=== PATIENT | female | born 1940 | race African-American/Black ===

== ENCOUNTER 2016-09-15 17:39 | Observation (INO) | payer OTHER ==
--- NOTE | ~2016-09-15 | EKG ---
PATIENT: KAYCEE TENA UNIT #: [id number] Ventricular Rate: 79 BPM Atrial Rate: 79 BPM P-R Interval: 144 ms QRS Duration: 80 ms Q-T Interval: 398 ms QTC Calculation(Bezet): 456 ms P Camak: 26 degrees Calculated R Camak: -24 degrees Calculated T Camak: 22 degrees Diagnosis Line: Normal sinus rhythm Diagnosis Line: Possible Left atrial enlargement Diagnosis Line: Left ventricular hypertrophy Diagnosis Line: RSR' or QR pattern in V1 suggests right Diagnosis Line: ventricular conduction delay Diagnosis Line: Abnormal ECG Diagnosis Line: When compared with ECG of 12-MAY-2014 22:19, Diagnosis Line: No significant change was found Diagnosis Line: Confirmed by MALOLRY BAPTISTE MD ([id number]) on 09/18/2016 Diagnosis Line: 4:09:15 PM INTERPRETING MD: EMILE RECINOS
--- NOTE | ~2016-09-15 | US128 ---
[id number] [facility] [address] [place], [place] [address] [id number] I MR#: [id number] Acc #: [id number] NAME: KAYCEE TENA : 1940 SEX: F STUDY DATE/TIME: 09/17/2016 10:36 UNIT: C3A PCU ROOM: 306 STUDY DESCRIPTION: US Thyroid Attending Physician: Lois Torres M.D. Ordering Physician: Lois Torres M.D. Primary Care Physician: Lois Torres M.D. MEDICAL IMAGING REPORT This report is preliminary unless electronic signature is present EXAM Thyroid ultrasound INDICATION Left thyroid nodule identified on the CT of the head, neck performed September 16, 2016. TECHNIQUE Farrell-scale and color Doppler sonographic images were obtained through the thyroid gland. Right lobe measures 3.1 x 1.1 x 0.9 cm. The left lobe measures 3.0 x 1.2 x 1.1 cm. The isthmus measures about 1 mm in thickness. Thyroid parenchyma is heterogeneous. There is a hypoechoic nodules seen within the right lobe of the thyroid gland measuring 7 x 4 x 6 mm. I do not think this is significantly changed in size when compared to the exam from November of 2011. There is a second nodule which is seen posterior to it which I also do not think is significantly changed in size when compared to the November 17, 2011 exam. There is a lobulated cystic nodule identified within the left lobe of the thyroid gland which was also seen in November 2011 and which I also do not think is significantly changed in size. No new nodules are identified. IMPRESSION This patient has bilateral thyroid nodules. These appear to be stable when compared to the exam from November 2011. No new nodules are seen. Dictated by... Lisette Joseph M.D. THIS IS AN ELECTRONICALLY VERIFIED REPORT Lisette Joseph M.D. at 09/18/2016 10:50 AM AFF/ea TD: 09/17/2016 16:06 JOB #: [id number] MEDICAL IMAGING REPORT Page 1 of 1 COPY
--- NOTE | ~2016-09-15 | CO ---
Unit #: [id number] #: [id number] Patient: KAYCEE TENA [id number] [facility] [address] [place], [place] [address] [id number] I MR#: [id number] NAME: KAYCEE TENA. ROOM: 306 Age: 76 Sex: F Admission Date: 09/15/2016 : 1940 Attending Physician: Lois Torres M.D. Primary Care Physician: Lois Torres M.D. Consultation Date: 09/16/2016 CONSULTATION REPORT PRIMARY CARE PHYSICIAN Dr. Lois Torres. REASON FOR CONSULTATION TIA. PATIENT IDENTIFICATION This is a 76-year-old, right-handed, female, evaluated in room 306 at [facility]. SOURCE OF INFORMATION Obtained from the patient as well as medical record. HISTORY OF PRESENT ILLNESS This is a very pleasant, 76-year-old, right-handed female with a past medical history of diabetes mellitus, type 2; hypertension; hypothyroidism, who presents to [facility] with complaints of facial paresthesia, left arm paresthesia and speech difficulty. She reports 2 separate episodes, both lasting about 20 minutes or so, with spontaneous resolution. She states that she was in her usual state of health until Monday when she was at a girlfriend's house that she experienced sudden onset of left arm numbness from her elbow down and also had facial numbness that she states started on the right lower portion of her face and traveled across her chin and reports this lasted about 20 minutes. She states that she did not think too much about it and the symptoms resolved, she decided not to seek further evaluation; however, yesterday, she had a sudden onset of same symptoms when she was at home with her , but also developed slurred speech. She states that she was aware of what was going on and was able to talk, but she states that everything was slurred and that her became concerned and called 911. Symptoms were noted by EMS. She was encouraged to come to the hospital where they brought her to [facility] for further evaluation. She states that her symptoms resolved in the ER and that she is back to her baseline. She is being admitted for possible TIA, rule out stroke. Neurology was asked to evaluate. She denies any exacerbating or alleviating factors. She denies any associated double vision, blurred vision, loss of vision, headache, neck pain, fever, chills, change in weight or routine, change in medications, any shortness of air, chest pain, or palpitations. She states that she felt strange, but was fully aware what was going on. She states that she normally does not have headaches, but admits that she did have a little bit of a headache after this event, though she reports it was mild and has resolved. She had a head CT done in the ER without contrast that showed no acute findings with derm-ms-bqohlqyu anterior bifrontal cerebral Unit #: [id number] #: [id number] Patient: KAYCEE TENA cortical atrophy and lbtl-nu-ondorojc chronic ischemic changes in subcortical and periventricular white matter bilaterally. She also underwent a CT angiogram of the head and neck that was negative for any stenosis by NASCET criteria at the carotid bifurcations with both cervical internal carotid arteries tortuous and there was disease in the bilateral carotid siphons due to atherosclerotic vascular calcifications with stenosis greater on the left than the right with suspicion for intracranial vascular irregularity in general, probably also due to intracranial atherosclerotic disease. No high-grade central stenosis suspected, but there are probably areas of more peripheral stenosis. No intracranial vascular cut off. Also noted, however, on the CTA incidentally the patient appears to have bilateral posterior communicating artery aneurysms, larger on the right than the left, about 3 x 3 mm on the left and 4 x 5 mm on the right. Additionally, there was aneurysmal fullness at the tip of the basilar up to about 5 mm. Per Radiology report, neurosurgical consultation is suggested to determine management options and followup imaging over a termite exterminator is recommended. There was also a low-attenuation lesion in the left lobe of the thyroid gland, 9 mm in diameter. The patient has known history of hypothyroidism, we will defer to primary care physician. Vertebral arteries are patent. Please see full report per Radiology. PAST MEDICAL HISTORY 1. Hypertension. 2. Diabetes mellitus, type 2. 3. Hypothyroidism. 4. Osteoporosis. 5. Arthritis. 6. Asthma. 7. She denies a prior history of TIA or stroke. Admission to [facility] in 2011 for atypical chest pain. She was seen by Cardiology. She underwent a stress test and was ruled out for DC. Stress test was negative. Vital signs were normal, but her blood pressure was 125/77. She is followed by Dr. Ness in the past. 8. Colonoscopy in [address] Magana for colorectal cancer risk that showed normal visualized mucosa and internal hemorrhoids. Poor prep leading to suboptimal exam. 9. Partial hysterectomy. 10. Left jaw surgery. ALLERGIES Codeine and valsartan. HOME MEDICATIONS As per med rec include Fosamax 5 mg p.o. daily, meloxicam 15 mg p.o. daily, diclofenac sodium enteric-coated 75 mg p.o. b.i.d., Singulair 10 mg p.o. daily, Vasotec 10 mg p.o. daily, levothyroxine sodium 0.25 mcg p.o. daily, Januvia 25 mg p.o. daily, enteric coated aspirin 325 mg p.o. daily, NovoLog insulin 70/30, 30 units subcu every morning. FAMILY HISTORY Positive for stroke in her mother. She was in her 70s. Positive for CAD and diabetes mellitus as well. SOCIAL HISTORY The patient is . She lives with her at home. She is disabled. She is a reformed smoker. She quit about 8 years ago. Denies alcohol abuse or illicit drug use. She states she drinks wine on rare Unit #: [id number] #: [id number] Patient: KAYCEE TENA. REVIEW OF SYSTEMS Fourteen-point review of systems was done. Pertinent positives are as discussed above. The patient also complains of chronic right knee arthritis pain, otherwise pertinent positives are as discussed above. PHYSICAL EXAMINATION VITAL SIGNS: Temperature 97.5. She has been afebrile. Pulse 88, respirations 18, blood pressure 140/66, oxygen saturation 99%; blood pressure in the ER on arrival was 157/76; height 5 feet 4 inches, weight 194 pounds, BMI 33. NEUROLOGIC: The patient is awake, alert, and oriented to person, place, and time as well as events. No right or left confusion. No finger agnosia. No aphasia, dysarthria, or apraxia. Cranial nerve exam, she demonstrates full santana of vision. Eyes are conjugate without ptosis or nystagmus. Extraocular movements are intact. Sensation of face and scalp is intact. Strength of the muscles of facial expression is intact. Hearing is intact to finger rub and conversation. Tongue is midline. Uvula is midline. Palate elevation is normal. Head turning and shoulder shrug are unremarkable. Neck is supple. Motor exam demonstrates normal bulk and tone. Strength is equal 5/5 in all extremities. Sensory exam, intact. Gait normal. Romberg deferred. Reflexes, 1/4. Toes are equivocal. Coordination unremarkable. DIAGNOSTIC STUDIES IMAGING STUDIES: As discussed above regarding CT and CTA. MRI of the brain without contrast on 09/16/2016 shows no evidence for recent ischemic insult on diffusion series. It does show fairly extensive probable sequelae of small vessel disease and generalized atrophy with incidental note made of empty sella. LABORATORY RESULTS: CRP 2.2. Cholesterol 199, triglycerides 120, LDL 133, HDL 42. TSH 2.13. CMP unremarkable other than glucose of 236. CK 89. PT 10.3, INR 1.0. Troponin less than 0.03. CBC unremarkable. Urinalysis is unremarkable. Glucose on arrival 110. CBC on arrival unremarkable. Troponin on arrival unremarkable. IMPRESSION 1. Focal neurologic changes with dysarthria. Consider possibility of transient ischemic attacks, though her presentation does not fit a specific vascular territory, but she certainly has multiple risk factors and she did present with sudden onset of neurologic deficits. Nothing at this time suggest seizure. She does not have a stroke on MRI. Transient ischemic attack is a possibility and she certainly has pretty significant probable sequelae of small vessel disease and generalized atrophy on MRI. Dr. Hull did make note of evidence of prior strokes on MRI as being somewhat extensive and she certainly has multiple risk factors. We will start the patient on Plavix and she has been taking aspirin prior, we will discontinue that and continue Plavix 75 mg p.o. daily. 2. Abnormal CT angiogram of the head and neck with aneurysms. Areas of concern for aneurysm noted as discussed above. The patient is to have outpatient followup imaging and neurosurgical consultation. Dr. Hull has discussed with Dr. Torres and given his recommendations. Unit #: [id number] #: [id number] Patient: KAYCEE TENA 3. Hypertension. 4. Hyperlipidemia. We will start the patient on intensive statin therapy. Her LDL is greater than 70. 5. Diabetes mellitus, type 2. Check hemoglobin A1c. PLAN We have started the patient on Plavix. We will check a 2D echo ultrasound to evaluate ejection fraction. The patient has been started on intensive statin therapy. Further recommendations pending workup and further clinical course. She needs outpatient neurologic and neurosurgical consultation. Dr. Hull has discussed the case with Dr. Torres. Please call for any questions or issues. We thank you very much for allowing us to assist in the care of this patient. Please note, the patient was not a candidate for acute intervention with alteplase since symptoms resolved upon arrival. Dictated by... Fransisca Santacruz A.P.R.N. for Shannon Norris/kenny TD: 09/18/2016 02:48 JOB #: [id number] CONSULTATION REPORT Page 1 of 1 X Fransisca Santacruz DIRECTOR OF CATH LAB X CONSULTATION REPORT
--- NOTE | ~2016-09-15 | CT71 ---
[facility] A Service of [facility] RADIOLOGY TEXT RESULTS PATIENT: KAYCEE TENA LOCATION: [facility] [id number] : [birth year] UNIT #: [id number] AGE: [address]: Lois Torres MD SEX: F ORDER DR: [id number] [facility] [address] [place], [place] [address] [id number] I MR#: [id number] Acc #: [id number] NAME: KAYCEE TENA. : 1940 SEX: F STUDY DATE/TIME: 09/15/2016 20:03 UNIT: [facility] ROOM: 38250 STUDY DESCRIPTION: CT Head Wo Contrast Attending Physician: Lois Torres M.D. Ordering Physician: Rayo Stanley M.D. Primary Care Physician: Lois Torres M.D. MEDICAL IMAGING REPORT This report is preliminary unless electronic signature is present EXAM CT brain without contrast HISTORY Left side face tingling and numbness today. FINDINGS This CT exam was performed with one or more of the following radiation dose reduction techniques: Automatic exposure control, adjustment of mA and/or kV according to patient size, and iterative reconstruction. CT brain without contrast demonstrates no intracranial hemorrhage, mass or edema. No midline shift or ventricular dilatation or extraaxial fluid collection. Zbkx-ha-kvnhfrxw anterior bifrontal cerebral cortical atrophy bilaterally. Mxeu-je-kargmziq multifocal chronic ischemic changes in the periventricular and subcortical white matter bilaterally. IMPRESSION 1. No acute findings. 2. Dklc-lu-khhmfgok anterior bifrontal cerebral cortical atrophy and vczg-ev-temxjjui chronic ischemic changes in the subcortical and periventricular white matter bilaterally. Dictated by... Harley Hess M.D. THIS IS AN ELECTRONICALLY VERIFIED REPORT Harley Hess M.D. at 09/15/2016 10:56 PM DFL/psc TD: 09/15/2016 22:34 JOB #: [id number] [facility] A Service of [facility] RADIOLOGY TEXT RESULTS PATIENT: KAYCEE TENA LOCATION: [facility] [id number] : [birth year] UNIT #: [id number] AGE: [address]: Lois Torres MD SEX: F ORDER DR: MEDICAL IMAGING REPORT Page 1 of 1 COPY
--- NOTE | ~2016-09-15 | DS ---
Unit #: [id number] #: [id number] Patient: KAYCEE TENA [id number] [address] [place], [place] [address] [id number] I MR#: [id number] NAME: KAYCEE TENA. ROOM: 306 Age: 76 Sex: F Admission Date: 09/15/2016 : 1940 Discharge Date: 09/17/2016 Attending Physician: Lois Torres M.D. Primary Care Physician: Lois Torres M.D. DISCHARGE SUMMARY FINAL DIAGNOSES 1. Focal neurological changes and dysarthria, which have resolved. 2. Possible TIA. 3. Significant small vessel disease per MRI. 4. Aneurysm posterior communicating artery and aneurysmal fullness at the deep white matter up to 5.0 mm. 5. Low attenuation lesion on the left lobe of the thyroid gland, about 9.0 in diameter, status post ultrasound which is still pending. 6. Hypertension. 7. Asthma. 8. Diabetes mellitus type 2. 9. Hypothyroidism. 10. Osteoporosis. DISCHARGE MEDICATIONS 1. Plavix 75 mg p.o. daily. 2. Discontinue aspirin. 3. Synthroid 25 mcg daily. 4. Diclofenac 75 mg b.i.d. 5. Singulair 10 mg daily. 6. Fosamax continue home dose. 7. Insulin 70/30, continue home dose. 8. Lipitor 40 mg at bedtime. 9. Vasotec 10 mg daily. 10. Januvia 25 mg daily. 11. Tylenol 650 mg q.6 h. p.r.n. 12. Continue albuterol inhaler on a p.r.n. basis. CONSULTANTS Dr. Hull from neurology service. DIAGNOSTIC DATA LABORATORY: Hemoglobin A1c 9.0, which is uncontrolled. The patient's diabetes needs to be controlled as an outpatient. C-reactive protein is 2.2. Lipid profile shows total cholesterol 199, triglycerides 120, LDL 133. TSH 2.13. Troponin less than 0.03. CMP shows sodium 135, potassium 4.0, chloride 104, BUN 16, creatinine 0.5. Liver enzymes are stable. CK 89. CBC shows white blood cell count 6.7, hemoglobin 13.9, hematocrit 43.0 and platelet count 280. Urinalysis was normal. IMAGING: CT scan of the head without contrast which shows no acute findings. Mild to moderate anterior bifrontal cerebral cortical atrophy and mild to moderate chronic ischemia changes in the subcortical and Unit #: [id number] #: [id number] Patient: KAYCEE TENA A periventricular white matter bilaterally. CTA of the neck findings are as above. MRI of the brain was done, which showed no evidence of recent ischemic insult. There is fairly extensive probability of small vessel disease and generalized atrophy. HOSPITAL COURSE Ms. Kaycee Tena is a 76-year-old female who was admitted with tingling of the face and left upper extremity. The patient was admitted to the telemetry unit. Acute CVA was ruled out. There is a possibility of TIA. The patient's aspirin has been stopped and started on Plavix. The patient does have significant small vessel disease. Anti-lipid medications have been started. The patient has multiple aneurysms on posterior communicating artery and basilar artery. The patient will need neurosurgery consult as an outpatient. The patient's symptoms have completely resolved. The patient is being discharged home on the above medications. Vital signs on discharge are blood pressure 131/75, regular rate 20, pulse 88, temperature 98.4, oxygen saturation 99%. CHEST: Fair air entry. HEART: Regular rhythm. ABDOMEN: Soft. DISCHARGE INSTRUCTIONS 1. The patient is being discharged home in stable condition. 2. Medications as per medication reconciliation. 3. Discontinue aspirin and start on Plavix 75 mg daily. 4. Follow up with Dr. Torres in one week. 5. The patient needs to see a neurosurgeon as an outpatient for aneurysm evaluation. 6. Repeat CT of the head needs to be done in three months for stability. 7. The patient may need neurology appointment as an outpatient. 8. Diabetic diet is advised. 9. Lipid and lipid profile in six weeks. Dictated by... Shannon Ruiz TD: 09/19/2016 13:31 JOB #: [id number] DISCHARGE SUMMARY Page 1 of 1 X Lois Torres MD X DISCHARGE SUMMARY
--- NOTE | ~2016-09-15 | CR72 ---
[facility] A Service of [facility] & [facility] RADIOLOGY TEXT RESULTS PATIENT: KAYCEE TENA LOCATION: [facility] : [birth year] UNIT #: [id number] AGE: [address]: Lois Torres MD SEX: F ORDER DR: [id number] [facility] [address]. [place], [place] [address] [id number] MR#: [id number] Acc #: [id number] NAME: KAYCEE TENA : 1940 SEX: F STUDY DATE/TIME: 09/15/2016 19:07 UNIT: [facility] ROOM: STUDY DESCRIPTION: CR Chest Single View Portable Attending Physician: Rayo Stanley M.D. Ordering Physician: Rayo Stanley M.D. Primary Care Physician: Lois Torres M.D. MEDICAL IMAGING REPORT This report is preliminary unless electronic signature is present EXAM Portable chest INDICATIONS Cough 5 days ago. PROCEDURE Frontal view chest COMPARISON 10/17/13 FINDINGS Heart size within normal limits. No dense consolidation, effusion or pneumothorax. IMPRESSION No active process. Dictated by... Miguel Forbes M.D. THIS IS AN ELECTRONICALLY VERIFIED REPORT Miguel Forbes M.D. at 09/15/2016 10:24 PM EED/psc TD: 09/15/2016 22:12 JOB #: [id number] MEDICAL IMAGING REPORT Page 1 of 1 COPY
--- NOTE | ~2016-09-15 | CT23 ---
[facility] A Service [facility] RADIOLOGY TEXT RESULTS PATIENT: KAYCEE TENA [facility]ATION: [facility]- : 42 UNIT #: [id number] AGE: [address]: Lois Torres MD SEX: F ORDER DR: [id number] [facility] [address] [place], [place] [address] [id number] I MR#: [id number] Acc #: [id number] NAME: KAYCEE TENA. : 1940 SEX: F STUDY DATE/TIME: 09/15/2016 20:08 UNIT: [address] ROOM: [facility] STUDY DESCRIPTION: CT Angio Neck Attending Physician: Lois Torres M.D. Ordering Physician: Rayo Stanley M.D. Primary Care Physician: Lois Torres M.D. MEDICAL IMAGING REPORT This report is preliminary unless electronic signature is present REVISED REPORT SEE ADDENDUM EXAM CT angiogram of the head and neck HISTORY Numbness. Left-sided face tingling and numbness starting prior to arrival today. No history of trauma. No history of cancer. TECHNIQUE CT angiography of the head and neck vessels was performed during the intravenous administration of 100 mL of Isovue-370. Imaging acquired in the axial plane followed by multiple reconstructed and reformatted images for the purpose of 3-D CT angiography of the head and neck vessels. This CT exam was performed with one or more of the following radiation dose reduction techniques: automatic exposure control, adjustment of mA and/or kV according to patient size, and iterative reconstruction. COMPARISON Earlier head CT from the same day. FINDINGS CT ANGIOGRAM NECK: The aortic arch branch pattern shows bovine origin of the left common carotid artery. No hemodynamically significant narrowing at great vessel origins from the arch. Evaluation of right carotid system shows mild plaque at the bulb but by NASCET criteria essentially 0% diameter stenosis. Mild calcified plaque in the siphon with mild stenosis. Assessment of the left carotid system shows mild plaque at the bulb but 0% stenosis by NASCET criteria. [facility] A Service of [facility] & [facility] RADIOLOGY TEXT RESULTS PATIENT: KAYCEE TENA [id number] UNIT #: [id number] AGE: [address]: Lois Torres MD SEX: F ORDER DR: Calcified plaque in the left carotid siphon with mild to moderate stenosis suspected. Both cervical internal carotid arteries are tortuous in the neck. The right vertebral artery is patent throughout and supplies the basilar. The left vertebral artery is patent throughout and supplies the basilar. The right is slightly dominant. Evaluation of the intracranial circulation shows no intracranial vascular cutoff. There is technical limitation of the twist and tumble MIP'd images provided such that there is artifactual cutoff of the left M2 vessel. I have notified the CT boiler tenders supervisor and am having this corrected at this time. Vessel is patent on the thick 3-D MIPs. The left A1 vessel is mildly hypoplastic. There is an anterior communicating artery present. There is fullness at the tip of the basilar from which the superior cerebellar and P1 vessels arise. The fullness is measuring up to about 4.0-5.0 mm and is consistent with aneurysmal dilatation. I would suggest follow-up over the assisted with MR angiography if the patient is a candidate to assess stability. There is also a 3.0 x 4.0 mm probable aneurysm supraclinoid ICA on the right expected location of origin of right posterior communicator but the structure is not consistent with an infundibulum and no significant posterior communicator is definitely seen. On the left there is a smaller similar structure which is worrisome for a small 3.0 x 3.0 mm left posterior communicating artery aneurysm. Again I do not see a definite posterior communicating vessel. Consider neurosurgical consultation to determine management options. There is a tiny focus of contrast outpouching at the junction of the right A1 and A2 vessels which could be a small vascular origin or could be a small aneurysm 1.0-2.0 mm in dimension and it is directed laterally. There is intracranial vascular irregularity probably due to intracranial atherosclerotic disease in age group. The carotid arteries in the neck have a medial course. The thyroid gland is fairly small but there is probably a 9.0 mm low attenuation lesion in the left lobe which is nonspecific and should be characterized further with a follow-up thyroid ultrasound. There are degenerative changes in the spine. The patient is partially edentulous. Preliminary wet reading provided overnight by Dr. Forbes 21:11 on 09/15/2016. IMPRESSION 1. By NASCET criteria, 0% stenosis at either carotid bifurcation. Both cervical internal carotid arteries are tortuous. 2. There is disease in the bilateral carotid siphons due to atherosclerotic vascular calcifications with stenosis greater on the left than the right. Additionally, I suspect that there is intracranial vascular irregularity in general. This is probably also due to intracranial atherosclerotic disease. No high grade central stenosis is suspected but there are probably areas of more peripheral stenosis. 3. There is no intracranial vascular cutoff. [facility] A Service of [facility] RADIOLOGY TEXT RESULTS PATIENT: KAYCEE TENA LOCATION: [facility] 306-01 : 42 UNIT #: [id number] AGE: [address]: Lois Torres MD SEX: F ORDER DR: 4. 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 Additionally there is aneurysmal fullness at the tip of the basilar up to about 5.0 mm. Suggest neurosurgical consultation to determine management options. At minimum, imaging follow-up over the assisted is recommended if no intervention is performed at this time. 5. There is a low attenuation lesion in the left lobe of the thyroid gland which is nonspecific about 9.0 in diameter and I would recommend characterization with a non-emergent thyroid ultrasound. 6. Both vertebral arteries are patent. STAT * RESULT Dictated by... Ashia Carrasco M.D. THIS IS AN ELECTRONICALLY VERIFIED REPORT Ashia Carrasco M.D. at 09/16/2016 11:49 AM Carlos Alberto TD: 09/16/2016 08:11 JOB #: [id number] ADDENDUM The reprocessed 3-D twist and tumble MIP reconstructed images have been obtained and reviewed. Please refer to the original dictation. Again, there is likely a component of intracranial atherosclerotic disease with areas of true stenosis likely present at least in the anterior cerebral artery territory. STAT * RESULT Dictated by... Ashia Carrasco M.D. THIS IS AN ELECTRONICALLY VERIFIED REPORT Ashia Carrasco M.D. at 09/19/2016 1:58 PM COLT/dmitri TD: 09/16/2016 12:28 JOB #: [id number] [facility]. [facility] A Service of [facility] & [facility] RADIOLOGY TEXT RESULTS PATIENT: KAYCEE TENA LOCATION: [facility] 306-01 : 42 UNIT #: [id number] AGE: [address]: Lois Torres MD SEX: F ORDER DR: MEDICAL IMAGING REPORT Page 1 of 1 COPY
--- NOTE | ~2016-09-15 | MR18 ---
[facility] A Service of [facility] RADIOLOGY TEXT RESULTS PATIENT: KAYCEE TENA LOCATION: [facility] 306-01 : 42 UNIT #: [id number] AGE: [address]: Lois Torres MD SEX: F ORDER DR: [id number] [facility] [address] [place], [place] [address] [id number] I MR#: [id number] Acc #: [id number] NAME: KAYCEE TENA. : 1940 SEX: F STUDY DATE/TIME: 09/16/2016 11:09 UNIT: [address] ROOM: [facility] STUDY DESCRIPTION: MR Brain Wo Contrast Attending Physician: Lois Torres M.D. Ordering Physician: Lois Torres M.D. Primary Care Physician: Lois Torres M.D. MRI CENTER REPORT This report is preliminary unless electronic signature is present. EXAM MRI of the brain without HISTORY TIA. Patient felt left arm go numb and then left side of face go numb on Monday09/11/2016. The patient came to the emergency room 09/15/2016. History of hypertension and diabetes. No history of cancer. COMMENT MRI of the brain was performed without contrast using routine 1.5-T imaging technique. There is a head CT for comparison from 09/15/2016. There is no evidence for a recent ischemic insult on the diffusion series. Borderline cerebellar tonsillar ectopia is noted. There is apparently an empty sella, and vascular ectasia is better seen on the CT angiogram. There is mild generalized atrophy. There is no MRI evidence for intracranial hemorrhage. There is no extraaxial fluid collection. There is fairly extensive white matter signal abnormality seen within subcortical, deep and periventricular white matter, supratentorial brain. This is nonspecific, but probably due to small vessel disease. There is mild generalized atrophy. The major intracranial flow voids are maintained. Minor fluid or inflammatory change in the mastoid air cells on the right. Paranasal sinuses are essentially clear. No intracranial mass effect or extraaxial fluid collection is suspected. IMPRESSION 1. There is no evidence for a recent ischemic insult on the diffusion series. 2. There is fairly extensive probable sequelae of small vessel disease and generalized atrophy. Incidental note made of an empty sella. [facility] A Service of [facility] RADIOLOGY TEXT RESULTS PATIENT: KAYCEE TENA LOCATION: [facility] 306-01 : 42 UNIT #: [id number] AGE: [address]: Lois Torres MD SEX: F ORDER DR: STAT * RESULT Dictated by... Ashia Carrasco M.D. THIS IS AN ELECTRONICALLY VERIFIED REPORT Ashia Carrasco M.D. at 09/16/2016 1:20 PM COLT/maritza TD: 09/16/2016 12:27 JOB #: [id number] MRI CENTER REPORT Page 1 of 1 COPY
--- NOTE | ~2016-09-15 | HP ---
Unit #: [id number] #: [id number] Patient: KAYCEE TENA [id number] [address] [place], [place] [address] [id number] I MR#: [id number] NAME: KAYCEE TENA. ROOM: 306 Age: 76 Sex: F Admission Date: 09/15/2016 : 1940 Attending Physician: Lois Torres M.D. Primary Care Physician: Lois Torres M.D. HISTORY AND PHYSICAL CHIEF COMPLAINT Numbness and tingling of the face and the left upper extremity. HISTORY OF PRESENT ILLNESS This 76-year-old female with multiple medical problems, including hypertension, diabetes mellitus, hypothyroidism, osteoporosis and arthritis came with the complaint of numbness. According to the patient, on Monday she went to see her girlfriend. At that time she had left upper extremity numbness and some face numbness. It lasted a few minutes. She did not really think too much of it and started to her work. It resolved. Yesterday, again, when she went to wash her clothes, she had again facial numbness. It started on the right lower face and went on the left side. She had numbness of her tongue, had some dysarthria, could not speak really well and had left upper extremity numbness. The patient called EMS and was brought to the ER and is being admitted to rule out TIA or CVA. The patient has not had any CVA in the past. At this time symptoms have completely resolved, and she is able to speak really well and does not have any numbness. She had never had any numbness in the lower extremity. She did not have any decreased strength. She was very conscious, awake, alert and oriented, and she was aware of her surroundings even at that time. She has not been having any nausea or vomiting. Has not been having any chest pain, no shortness of breath, no abdominal pain. She has been coughing a lot. She has history of asthma and has been dealing with that. PAST MEDICAL HISTORY 1. Hypertension. 2. Diabetes mellitus. 3. Hypothyroidism. 4. Osteoporosis. 5. Arthritis. 6. Asthma. HOME MEDICATIONS 1. Fosamax 5 mg daily. 2. Meloxicam 15 mg daily. 3. Diclofenac 75 mg b.i.d. 4. Singulair 10 mg daily. 5. Vasotec 10 mg daily. 6. Levothyroxine 25 mcg daily. 7. Januvia 25 mg daily. 8. Aspirin 325 mg daily. 9. NovoLog mix 70/30 - 30 units subcu q.a.m. Unit #: [id number] #: [id number] Patient: KAYCEE TENA SOCIAL HISTORY The patient lives at home. No history of smoking, alcohol or drug abuse. FAMILY HISTORY Patient's mother had coronary artery disease, and she of stroke. One of her aunts also had diabetes. One of her sisters also had diabetes and from complications. PAST SURGICAL HISTORY 1. History of partial hysterectomy. 2. History of left jaw surgery. ALLERGIES Diovan and codeine. REVIEW OF SYMPTOMS The patient has a lot of arthritis pain, right knee. She had an injection done by orthopedic surgeon. Now she requires a cane to ambulate. No history of fever, chills or rigors. No history of chest pain. No abdominal pain. No shortness of breath. No syncopal episode. No dizziness. The rest is as per history of presenting illness. PHYSICAL EXAMINATION GENERAL: The patient is being evaluated in room 306. Seems to be awake, alert, oriented x3. No distress. VITAL SIGNS: Blood pressure is 140/66, respiratory rate 18, pulse 88, temperature 97.5, oxygen saturation 99%. HEENT: Head is normocephalic. Eye movements are normal. No nystagmus. NECK: Neck is supple. No carotid bruits. RESPIRATORY: Chest has fair air entry. No adventitious sounds. CVS: S1, S2 positive. Regular rhythm. ABDOMEN: Soft. EXTREMITIES: Negative edema. OR DIRECTOR: The patient is awake, alert and oriented. No focal neurologic deficits. DIAGNOSTIC STUDIES LAB WORKUP: WBC 8.2, hemoglobin 13.5, hematocrit 42, platelet count 256. Troponin is less than 0.05. BMP shows sodium 137, potassium 3.9, chloride 102, BUN 20, creatinine 0.7. Liver enzymes are normal. PT is 10, INR 1. Urinalysis was done, which is normal. RADIOLOGICAL STUDIES DONE DURING HOSPITALIZATION: Chest x-ray, which shows no active disease. CT scan of the head without contrast was done, which shows no acute findings. Jwew-zv-gykjjmjs anterior bifrontal cerebral cortical atrophy and oxiy-bh-jozsfank chronic ischemic changes are seen. CTA of the head and neck was done, which shows bilateral posterior communicating artery aneurysm, larger on the right than left. Additionally, there is aneurysmal fullness at the tip of the basilar up to about 5.0 mm. There is left lobe thyroid gland lesion seen. Ultrasound of thyroid is recommended. MRI of the brain was done, which showed no evidence for recent ischemic insult, but there is extensive small vessel disease sequelae and Unit #: [id number] #: [id number] Patient: KAYCEE TENA generalized atrophy. ASSESSMENT AND PLAN 1. Patient is being admitted to telemetry unit with focal neurological changes and dysarthria, which are resolved. Possible TIA. 2. Significant small vessel disease per MRI. 3. 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 4. Hypertension. 5. Diabetes mellitus. 6. Hypothyroidism. 7. Osteoporosis. 8. Asthma. PLAN Admit to telemetry unit. Dr. Hull has been consulted. Aspirin is being discontinued. Plavix is being started. Hemoglobin A1C and TSH is being done, which is still pending. Echocardiogram is being done, which is still pending. Home medications have been reviewed and adjusted. Plan of care has been discussed with the patient at length. Please refer to progress note for further orders. Discussed with Dr. Hull at length. Patient will need neurosurgeon appointment as an outpatient, and patient will need CTA repeated in 10 weeks or so. Dictated by Shannon Ruiz TD: 09/16/2016 15:09 JOB #: [id number] HISTORY AND PHYSICAL Page 1 of 1 X Lois Torres MD X HISTORY AND PHYSICAL
--- NOTE | ~2016-09-15 | CT17 ---
[facility] A Service of [facility] & [facility] RADIOLOGY TEXT RESULTS PATIENT: KAYCEE TENA LOCATION: [facility] 306- : 42 UNIT #: [id number] AGE: [address]: Lois Torres MD SEX: F ORDER DR: [id number] [facility] [address] [place], [place] [address] [id number] I MR#: [id number] Acc #: [id number] NAME: KAYCEE TENA. : 1940 SEX: F STUDY DATE/TIME: 09/15/2016 20:08 UNIT: [address] ROOM: [facility] STUDY DESCRIPTION: CT Angio Head Attending Physician: Lois Torres M.D. Ordering Physician: Rayo Stanley M.D. Primary Care Physician: Lois Torres M.D. MEDICAL IMAGING REPORT This report is preliminary unless electronic signature is present EXAM CT angiogram of the head HISTORY FINDINGS Please see CT angiogram of the neck for results. Dictated by... Ashia Carrasco M.D. THIS IS AN ELECTRONICALLY VERIFIED REPORT Ashia Carrasco M.D. at 09/16/2016 11:49 AM Carlos Alberto TD: 09/16/2016 08:10 JOB #: [id number] MEDICAL IMAGING REPORT Page 1 of 1 COPY
[~2016-09-15 17:39] MED LIST: ADVAIR 115-21 INH; ALBUTEROL17 GM INH; ALPRAZOLAM PO; ASPIRIN PO; ATENOLOL PO; BACTRIM DS TABL1 TA1 PO; BAYER ASPIRIN325 M1 PO; BENADRYL PO; BENADRYL25 M1 PO; BENADRYL25 MG PO; CELEBREX100 MG PO; CIPRO250 MG PO; CLARITIN10 MG PO; CLINORIL PO; ECOTRIN325 MG PO; ENALAPRIL MALEA10 MG PO; ESCITALOPRAM OX10 MG PO; FOSAMAX5 M1 PO; FOSAMAX5 MG PO; GLUCOVANCE 5/501 TA1 PO; GLUCOVANCE 5/501 TA2 PO; HUMULIN 70/30 V10 ML; HUMULIN 70100 UNIT/1 SUBQ; HUMULIN N300 U/3 ML SUBQ; HUMULIN R100 U/ML SUBQ; HYDROCODON-ACE1 EAC7 PO; KEFLEX PO; LEVAQUIN PO; LEVOTHYROXINE25 MC1 PO; LEVOTHYROXINE25 MCG PO; LORTAB 7.5-5001 TAB PO; METFORMIN PO; METOPROLOL SUCC50 MG PO; MONTELUKAST SOD10 MG PO; MOTRIN400 MG PO; NASONEX17 GM; PERCOCET 5-3251 TAB PO; PERCOCET5/325 PO; PHENERGAN W/CO120 ML PO; PROAIR HFA8.5 GM IH; PROZAC PO; Q-DRYL25 M1 PO; SILVADENE TOP; SINGULAIR PO; SYMBICORT INH; TAMIFLU6 MG/1 ML; TOPROL XL50 MG PO; TRENTAL400 MG PO; UNIVASC7.5 MG PO; VASOTEC PO; VASOTEC10 MG PO; VICODIN 5/500 T1 TAB PO; VICODIN PO; ZITHROMAX PO
[2016-09-15 19:23] LABS: BASOPHIL# 0.2 X10e3 (0-0.3); BASOPHIL% 2.4 % (0-2.5); DIFF IND NO; EOSINOPHIL# 0.2 X10e3 (0-0.7); EOSINOPHIL% 2.8 % (0.0-7.0); HEMOGLOBIN 13.5 gm/dL (12.0-16.0); LYMPHOCYTE# 3.6 X10e3 (1.0-3.5); LYMPHOCYTE% 43.6 % (17.0-45.0); MEAN CELL VOLUME 90.8 FL (83-96); MEAN CORPUSCULAR HEMOGLOBIN 29.3 PG (28-34); MEAN CORPUSCULAR HGB CONC 32.2 g/dL (30-36); MEAN PLATELET VOLUME 8.9 FL (6.5-11.5); MONOCYTE# 0.6 X10e3 (0-1.0); MONOCYTE% 7.2 % (3.0-12.0); NEUTROPHIL# 3.6 X10e3 (1.5-7.1); PLATELET COUNT 256 X10e3 (140-420); RED BLOOD COUNT 4.63 X10e (3.90-5.30); RED CELL DISTRIBUTION WIDTH 14.3 % (11.0-15.5); WHITE BLOOD COUNT 8.2 X10e3 (4.0-10.5)
[2016-09-15 19:24] LABS: POC - CKMB <1.0 ng/mL (0.0-7.9); POC - TROPONIN <0.05 ng/mL (<=0.05)
[2016-09-15 19:38] LABS: PARTIAL THROMBOPLASTIN TIME 26.3 SECONDS (23.5-31.3)
[2016-09-15 19:46] LABS: ALBUMIN SERUM 4.1 g/dL (3.5-5.0); BILIRUBIN, DIRECT 0.1 mg/dL (0.0-0.2); BILIRUBIN,INDIRECT 0.6 mg/dL (0.0-0.9); BILIRUBIN,TOTAL 0.7 mg/dL (0.2-2.0); BUN/CREATININE RATIO 28.57; CALCIUM SERUM 9.1 mg/dL (8.4-10.2); CREATININE SERUM 0.7 mg/dL (0.6-1.4); GLOM FILT RATE Estimated 98.9 mL/min (>60); POTASSIUM 3.9 mmol/L (3.5-5.1); PROTEIN TOTAL SERUM 7.5 g/dL (6.0-8.3)
[2016-09-15 20:24] LABS: URINE SOURCE CLEAN CATCH
[2016-09-15 20:29] LABS: URINE APPEARANCE CLEAR; URINE BILIRUBIN NEG (NEG); URINE BLOOD NEG (NEG); URINE COLOR YELLOW; URINE GLUCOSE NEG (NEG); URINE KETONE NEG (NEG); URINE LEUKOCYTE ESTERASE NEG (NEG); URINE NITRATE NEG (NEG); URINE PROTEIN NEG (NEG); URINE UROBILINOGEN 0.2 MG/DL (NEG)
[2016-09-15 20:32] LABS: CULTURE INDICATED? NO
[2016-09-15] MEDS ORDERED: FOSAMAX5 M1 PO (22:06)
[2016-09-15] MEDS ORDERED: MELOXICAM15 MG PO (22:07)
[2016-09-15] MEDS ORDERED: VASOTEC PO (22:07)
[2016-09-15] MEDS ORDERED: SINGULAIR PO (22:07)
[2016-09-15] MEDS ORDERED: VOLTAREN75 MG PO (22:07)
[2016-09-15] MEDS ORDERED: JANUVIA25 MG PO (22:08)
[2016-09-15] MEDS ORDERED: LITE COAT ASPI325 M2 PO (22:08)
[2016-09-15] MEDS ORDERED: LEVO-T25 MCG PO (22:08)
[2016-09-15] MEDS ORDERED: NOVOLOG7030 SUBQ (22:10)
[2016-09-16 14:32] LABS: HEMOGLOBIN 13.9 gm/dL (12.0-16.0); MEAN CELL VOLUME 90.4 FL (83-96); MEAN CORPUSCULAR HEMOGLOBIN 29.2 PG (28-34); MEAN CORPUSCULAR HGB CONC 32.3 g/dL (30-36); MEAN PLATELET VOLUME 8.8 FL (6.5-11.5); RED BLOOD COUNT 4.76 X10e (3.90-5.30); RED CELL DISTRIBUTION WIDTH 14.4 % (11.0-15.5); WHITE BLOOD COUNT 6.7 X10e3 (4.0-10.5)
[2016-09-16 15:00] LABS: PROTHROMBIN TIME (PATIENT) 10.3 SECONDS (9.6-11.5)
[2016-09-16 15:02] LABS: ALBUMIN SERUM 4.1 g/dL (3.5-5.0); BILIRUBIN,TOTAL 0.2 mg/dL (0.2-2.0); CALCIUM SERUM 9.2 mg/dL (8.4-10.2); CREATININE SERUM 0.5 mg/dL (0.6-1.4); GLOM FILT RATE Estimated 110.5 mL/min (>60); PROTEIN TOTAL SERUM 7.8 g/dL (6.0-8.3)
[2016-09-16 15:20] LABS: %MB 2.2 % (0.0-4.0)
[2016-09-16 15:43] LABS: CHOLESTEROL 199 mg/dL (0-200); HDL CHOLESTEROL 42 mg/dL (35-95); LDL/HDL RATIO 3 RATIO (0-4); TRIGLYCERIDES 120 mg/dL (10-160)
[2016-09-16 15:46] LABS: LDL CHOLESTEROL 133 mg/dL (-130)
[2016-09-17] MEDS ORDERED: TYL325 PO (14:44)
[2016-09-17] MEDS ORDERED: LIPITOR40 MG PO (14:44)
[2016-09-17] MEDS ORDERED: CLOPIDOGREL BIS75 MG PO (14:45)
== END 2016-09-17 16:07 | disposition home or self-care (01) ==
LOC: CED 17:39 → C3A PCU 21:50 → CEDOF 21:50 → CED 22:15 → C3A PCU 22:15 → CEDOF 22:15 → C3A PCU 09-16 00:03 → CEDOF 09-16 00:03 → C3A PCU 09-17 16:07
PROVIDERS: Emergency Medicine; Physician Assistant Medical
DX: R20.0 Anesthesia of skin (principal); R47.1 Dysarthria and anarthria; I72.5 Aneurysm of other precerebral arteries; I73.9 Peripheral vascular disease, unspecified; I10 Essential (primary) hypertension; E11.9 Type 2 diabetes mellitus without complications; E03.9 Hypothyroidism, unspecified; M81.0 Age-related osteoporosis without current pathological fracture; I08.1 Rheumatic disorders of both mitral and tricuspid valves; J45.909 Unspecified asthma, uncomplicated; E04.2 Nontoxic multinodular goiter; Z79.4 Long term (current) use of insulin; Z79.02 Long term (current) use of antithrombotics/antiplatelets; Z90.711 Acquired absence of uterus with remaining cervical stump; Z83.3 Family history of diabetes mellitus; Z82.49 Family history of ischemic heart disease and other diseases of the circulatory system; Z82.3 Family history of stroke; Z88.5 Allergy status to narcotic agent
CPT/HCPCS: 70450; 70496; 70498; 70551; 71010; 76536; 80048; 80053; 80061; 80076; 81003; 82550; 82553; 82947; 83036; 84443; 84484; 85025; 85027; 85610; 85730; 86140; 93005; 94640; 94760; 96372; 96374; 99285; C8929; G0378; J1650; J1815; J2060; Q9967

== ENCOUNTER 2016-09-18 00:02 | Emergency (ER) | payer OTHER ==
[~2016-09-18 00:02] MED LIST changes: +CLOPIDOGREL BIS75 MG PO; +JANUVIA25 MG PO; +LEVO-T25 MCG PO; +LIPITOR40 MG PO; +LITE COAT ASPI325 M2 PO; +MELOXICAM15 MG PO; +NOVOLOG7030 SUBQ; +TYL325 PO; +VOLTAREN75 MG PO
== END 2016-09-18 02:03 | disposition home or self-care (01) ==
LOC: CED 00:02
DX: E11.65 Type 2 diabetes mellitus with hyperglycemia (principal); I11.0 Hypertensive heart disease with heart failure; I50.9 Heart failure, unspecified; Z88.5 Allergy status to narcotic agent; Z88.8 Allergy status to other drugs, medicaments and biological substances; Z79.899 Other long term (current) drug therapy
CPT/HCPCS: 82947; 99284

== ENCOUNTER → 2016-10-13 | Outpatient (CLI) | payer OTHER ==
--- NOTE | ~2016-10-13 | MY29 ---
[facility] A Service of [facility] RADIOLOGY TEXT RESULTS PATIENT: KAYCEE TENA LOCATION: [facility] : 42 UNIT #: [id number] AGE: [address]: Lois Torres MD SEX: F ORDER DR: [id number] [facility] [address] [place], [place] [address] [id number] MR#: [id number] Acc #: [id number] NAME: KAYCEE TENA : 1940 SEX: F STUDY DATE/TIME: 10/13/2016 13:16 UNIT: [facility] ROOM: STUDY DESCRIPTION: MY RIANNA SCREENING W/ CAD BILAT Attending Physician: Lois Torres M.D. Referring Physician: Lois Torres M.D. Ordering Physician: Lois Torres M.D. Primary Care Physician: Lois Torres M.D. MEDICAL IMAGING REPORT This report is preliminary unless electronic signature is present EXAM Digital screening mammogram 10/13/2016 HISTORY 76-year-old woman, no risk elevation. Annual screen. COMPARISON STUDIES Comparison mammograms date to 01/11/2007 with most recent 12/05/2013. FINDINGS Digital imaging of each breast was completed utilizing screening protocol. Review includes FDA-approved CAD device. Breast parenchyma remains heterogeneously dense with subareolar duct prominence in each breast. Small circumscribed superficial nodule, subareolar location left breast is stable. I see no interval occurring mass. There are no suspicious microcalcifications and no suspicious architectural deformity. IMPRESSION Stable benign mammogram. Annual screening recommended. BIRADS II Patients over the age of 40 are entered into a reminder system with target due date for the next mammogram. A result letter will also be sent to the patient. BIRADS: 2 - Benign finding Dictated by... Arian Fuentes M.D. THIS IS AN ELECTRONICALLY VERIFIED REPORT Arian Fuentes M.D. at 10/13/2016 4:06 PM NATHAN/maria teresa [facility] A Service of [facility] & [facility] RADIOLOGY TEXT RESULTS PATIENT: KAYCEE TENA LOCATION: [facility] : 42 UNIT #: [id number] AGE: [address]: Lois Torres MD SEX: F ORDER DR: TD: 10/13/2016 15:54 JOB #: [id number] MEDICAL IMAGING REPORT Page 1 of 1 COPY
== END | disposition home or self-care (01) ==
LOC: CWCC 12:46
DX: Z12.31 Encounter for screening mammogram for malignant neoplasm of breast (principal)
CPT/HCPCS: G0202

== ENCOUNTER 2016-10-31 18:00 | Emergency (ER) | payer OTHER ==
[~2016-10-31] VITALS: Ht 162.6 cm; Wt 89.3 kg
--- NOTE | ~2016-10-31 | EKG ---
PATIENT: KAYCEE TENA UNIT #: [id number] Ventricular Rate: 95 BPM Atrial Rate: 95 BPM P-R Interval: 178 ms QRS Duration: 86 ms Q-T Interval: 368 ms QTC Calculation(Bezet): 462 ms P [place]: 54 degrees Calculated R [place]: -13 degrees Calculated T [place]: 51 degrees Diagnosis Line: Normal sinus rhythm Diagnosis Line: Moderate voltage criteria for LVH, may be normal Diagnosis Line: variant Diagnosis Line: Borderline ECG Diagnosis Line: When compared with ECG of 15-SEP-2016 18:48, Diagnosis Line: No significant change was found Diagnosis Line: Confirmed by PETER OLIVEROS MD ([id number]) on Diagnosis Line: 11/01/2016 5:08:39 PM INTERPRETING MD: DOMO RECINOS
--- NOTE | ~2016-10-31 | CT71 ---
[facility] A Service of [facility] & [facility] RADIOLOGY TEXT RESULTS PATIENT: KAYCEE TENA LOCATION: [facility] : 42 UNIT #: [id number] AGE: [address]: David Roy MD SEX: F ORDER DR: [id number] [facility] [address] [place], [place] [address] [id number] E MR#: [id number] Acc #: [id number] NAME: KAYCEE TENA : 1940 SEX: F STUDY DATE/TIME: 10/31/2016 21:21 UNIT: [facility] ROOM: STUDY DESCRIPTION: CT Head Wo Contrast Attending Physician: Miguel Roy M.D. Ordering Physician: Ed Doctor [id number] [facility] Primary Care Physician: Lois Torres M.D. MEDICAL IMAGING REPORT This report is preliminary unless electronic signature is present EXAM CT head, 10/31/2016 HISTORY Hallucinations, confusion, unable to sleep x3 days. Headache for today. TECHNIQUE CT of the head performed skull base through vertex without intravenous contrast. This CT exam was performed with one or more of the following radiation dose reduction techniques: automatic exposure control, adjustment of mA and/or kV according to patient size, and iterative reconstruction. COMPARISON 09/15/2016 FINDINGS Brainstem unremarkable. Cerebellum and cerebral hemispheres show normal pimentel matter-white matter differentiation overall. At the right parietal vertex there is a 1.0 cm focus of hyperdensity, new compared to 09/15/2016 and consistent with acute products of hemorrhage. The exact location is somewhat unclear but I would favor that it is predominately parenchymal in location and located in a right parietal vertex gyrus. Cause for hemorrhage unclear. No suspicious abnormality seen at this location on prior study. There is some subarachnoid products of hemorrhage more inferiorly in the upper right parietal lobe. There is no mass effect. No other areas of hemorrhage. No evidence of acute cortical ischemia. There are periventricular and deep white matter tract hypodensities unchanged from prior examination and most consistent with sequelae of chronic microvascular ischemia. The midline structures are nondisplaced. No acute basal ganglia abnormality. Ventricles, cisterns and sulci show mild generalized enlargement consistent with mild generalized atrophy. There STS. [facility] A Service of [facility] & [facility] RADIOLOGY TEXT RESULTS PATIENT: KAYCEE TENA LOCATION: [facility] : 42 UNIT #: [id number] AGE: [address]: David Roy MD SEX: F ORDER DR: are cavernous carotid arterial calcifications. The intraorbital soft tissues show no acute abnormality. The visualized paranasal sinuses and mastoid air cells are clear. IMPRESSION 1. Findings discussed with Dr. Roy during this dictation. 1.0 cm focus of acute products of hemorrhage at the right parietal vertex. I believe this is probably predominately intraparenchymal along a gyrus at the right parietal vertex. There is some linear subarachnoid extension into a subjacent sulcus. Cause unclear. No abnormality is seen at this location on CT examination from September 2016. There is no significant mass effect. Followup imaging recommended to confirm resolution. No other areas of hemorrhage are seen. 2. Periventricular and deep white matter tract probable sequelae of chronic microvascular ischemia. Stable. 3. Mild generalized atrophy. 4. Vascular calcifications. Dictated by... Isra Hirsch M.D. THIS IS AN ELECTRONICALLY VERIFIED REPORT Isra Hirsch M.D. at 11/01/2016 6:52 PM Amparo TD: 11/01/2016 11:06 JOB #: [id number] MEDICAL IMAGING REPORT Page 1 of 1 COPY
[2016-10-31 21:12] LABS: URINE SOURCE CLEAN CATCH
[2016-10-31 21:18] LABS: BASOPHIL# 0.2 X10e3 (0-0.3); BASOPHIL% 2.4 % (0-2.5); EOSINOPHIL# 0.2 X10e3 (0-0.7); EOSINOPHIL% 3.4 % (0.0-7.0); HEMATOCRIT 40.9 % (35.0-45.0); HEMOGLOBIN 13.3 gm/dL (12.0-16.0); LYMPHOCYTE# 3.1 X10e3 (1.0-3.5); LYMPHOCYTE% 42.7 % (17.0-45.0); MEAN CELL VOLUME 90.1 FL (83-96); MEAN CORPUSCULAR HEMOGLOBIN 29.4 PG (28-34); MEAN CORPUSCULAR HGB CONC 32.6 g/dL (30-36); MEAN PLATELET VOLUME 8.5 FL (6.5-11.5); MONOCYTE# 0.5 X10e3 (0-1.0); MONOCYTE% 6.5 % (3.0-12.0); NEUTROPHIL# 3.2 X10e3 (1.5-7.1); PLATELET COUNT 277 X10e3 (140-420); RED BLOOD COUNT 4.54 X10e (3.90-5.30); RED CELL DISTRIBUTION WIDTH 14.4 % (11.0-15.5); WHITE BLOOD COUNT 7.2 X10e3 (4.0-10.5)
[2016-10-31 21:21] LABS: DIFF IND NO
[2016-10-31 21:27] LABS: URINE APPEARANCE CLOUDY; URINE BILIRUBIN NEG (NEG); URINE BLOOD NEG (NEG); URINE COLOR YELLOW; URINE GLUCOSE NEG (NEG); URINE KETONE NEG (NEG); URINE LEUKOCYTE ESTERASE 3+ (NEG); URINE NITRATE NEG (NEG); URINE PH 6.5 (5-8); URINE PROTEIN NEG (NEG); URINE SPECIFIC GRAVITY 1.013 (1.003-1.035); URINE UROBILINOGEN 0.2 MG/DL (NEG)
[2016-10-31 21:28] LABS: CULTURE INDICATED? YES; URINE BACTERIA AUWI NEG (NEGATIVE); URINE SQUAMOUS EPITHELIAL CELL OCC /[HPF]; UWBCS1 AUWI 50-100 (0-5)
[2016-10-31 22:00] LABS: ALBUMIN SERUM 4.1 g/dL (3.5-5.0); BILIRUBIN, DIRECT 0.1 mg/dL (0.0-0.2); BILIRUBIN,INDIRECT 0.5 mg/dL (0.0-0.9); BILIRUBIN,TOTAL 0.6 mg/dL (0.2-2.0); BUN/CREATININE RATIO 33.33; CALCIUM SERUM 8.7 mg/dL (8.4-10.2); CREATININE SERUM 0.6 mg/dL (0.6-1.4); GLOM FILT RATE Estimated 104.1 mL/min (>60); POTASSIUM 3.4 mmol/L (3.5-5.1); PROTEIN TOTAL SERUM 7.4 g/dL (6.0-8.3)
== END 2016-10-31 22:49 | disposition hospice, home (50) ==
LOC: CED 18:00
PROVIDERS: Emergency Medicine
DX: R44.1 Visual hallucinations (principal); N30.00 Acute cystitis without hematuria; I62.9 Nontraumatic intracranial hemorrhage, unspecified; E11.9 Type 2 diabetes mellitus without complications; J45.909 Unspecified asthma, uncomplicated; F32.9 Major depressive disorder, single episode, unspecified; Z88.5 Allergy status to narcotic agent; Z88.8 Allergy status to other drugs, medicaments and biological substances; Z79.899 Other long term (current) drug therapy
CPT/HCPCS: 36415; 70450; 80048; 80076; 81003; 82947; 85025; 87086; 93005; 99285